=== PATIENT | female | born 1995 | race Caucasian/White ===

== ENCOUNTER → 2016-08-07 | Outpatient (CLI) | payer OTHER ==
[2016-08-07 16:02] LABS: CH 32.1; HCT 33.9 % (34.0-46.0); HGB 11.8 gm/dL (11.4-16.0); MCH 31.1 pg (25.0-35.0); MCHC 34.8 g/dL (31.0-37.0); MCV 89.5 fL (80.0-100.0); Mean Platelet Volume 7.8; RBC 3.78 m/uL (3.80-5.40); RDW 12.4 % (11.5-15.5); WBC 11.6 k/uL (3.8-10.6)
[2016-08-07 16:12] LABS: Glucose 91 mg/dL (74-99); Non-African American GFR(MDRD) >60 (>60 ml/min/1.73 sqM)
[2016-08-07 16:43] LABS: Hepatitis B Surface Ag Index 0.06
[2016-08-08 00:22] LABS: Treponemal Ab Non-Reactive (Non-Reactive)
[2016-08-08 07:43] LABS: HIV-1/HIV-2 Ab Screen NONREAC (NON REAC)
== END | disposition home or self-care (01) ==
LOC: LABWHC1 15:39
PROVIDERS: ATTEND Obstetrics & Gynecology
DX: O26.811 Pregnancy related exhaustion and fatigue, first trimester (principal); Z3A.00 Weeks of gestation of pregnancy not specified
CPT/HCPCS: 36415; 82565; 82947; 85027; 86694; 86695; 86696; 86762; 86777; 86778; 86780; 86850; 86900; 86901; 87340; 87389

== ENCOUNTER → 2016-09-29 | Outpatient (CLI) | payer OTHER ==
--- NOTE | 2016-09-30 09:49 | US ---
EXAMINATION TYPE: US OB anatomy transabd DATE OF EXAM: 09/29/2016 9:35 AM COMPARISON: NONE HISTORY: 036.62XO 2nd tri large for dates TECHNIQUE: EXAM MEASUREMENTS: GESTATIONAL AGE / DATING Physician Established: (19 weeks/4 days) EDC: 02/19/2017 Dates by LMP: Unknown Dates by First Scan: Not available Dates by Current Scan for: (19 weeks/3 days) EDC: 02/20/17 SURVEY IUP: Single PLACENTA: Anterior PREVIA: No previa REINIER: 12.20 cm CERVICAL LENGTH (transabdominal: norm > 3.0cm): 4.8 cm BIOMETRY PRESENTATION: Vertex LIE: Transverse with head maternal Left BPD: 4.5 cm 19 weeks / 5 days HC: 16.4 cm 19 weeks / 1 days AC: 13.9 cm 19 weeks / 3 days FL: 3.0 cm 19 weeks / 2 days ESTIMATED WEIGHT IN GRAMS: 284 grams ESTIMATED WEIGHT IN LBS/OZS: 0 lbs. 10 oz. WEIGHT PERCENTAGE BASED ON ESTABLISHED DATE: 30 % HC/AC: 1.2 FL/AC: 22. HEART RATE: 144 bpm RHYTHM: Normal ANATOMY SEEN (within normal limits): * Lateral Vent (< 1 cm) 0.8 cm * Cisterna Magna (< 1.1 cm) 0.3 cm * Nuchal Fold (< 0.6 cm) 0.4 cm * Cerebellum (varies with age) 1.6 cm Choroid Plexus (bilateral) Midline Falx Cavus Septi Pellucidi Four Chamber Heart Outflow tracts: LVOT/RVOT Stomach Situs Nose / Lips Diaphragm Kidneys (bilateral) - prominent renal pelvis 3 mm Bladder Cord Insert Three Vessel Cord Longitudinal Spine Transverse Spine Arms (bilateral) Legs (bilateral) TECHNOLOGIST IMPRESSION: Difficult to obtain head structures due to position. IMPRESSION: 1. Single intrauterine gestation estimated at 19 weeks 3 days gestation. This would've a calculated E DC of 02/20/2017 based on current measurements.Correlate this with her physician established EDC. 2. Cardiac activity measuring 144 bpm was observed during the study.
== END | disposition home or self-care (01) ==
LOC: RADUSWWP 08:19
PROVIDERS: ATTEND Obstetrics & Gynecology
DX: O36.62X0 Maternal care for excessive fetal growth, second trimester, not applicable or unspecified (principal); Z3A.19 19 weeks gestation of pregnancy
CPT/HCPCS: 76811

== ENCOUNTER 2016-11-13 15:40 | Outpatient (CLI) | payer OTHER ==
[2016-11-13 16:00] VITALS: BP 117/73; PULSE 88; RESP 16; TEMP 97.2
--- NOTE | 2016-11-13 20:09 | P.MSEPDOC ---
Presenting Problems - Arrival Data Date of Arrival on Unit: 11/13/16 Time of Arrival on Unit: 15:45 Mode of Transport: Ambulatory - Complaint OB-Reason for Admission/Chief Complaint: Decreased Movement Comment: x 1.5 days Medical History - Information : 3 Para: 0 Term: 0 : 0 Abortions: Spontaneous or Elective: 2 Number of Living Children: 0 - Gestational Age Expected Date of Delivery: 02/22/17 Gestational Age by RASHMI (wks/days): 25 Weeks and 4 Days - History Sexually Transmitted Diseases: HSV Comment: last outbreak 1 month ago, treating as indicated Review of Systems - Review of Systems Constitutional: No problems Breast: No problems ENT: No problems Cardiovascular: No problems Respiratory: No problems Gastrointestinal: No problems Genitourinary: No problems Musculoskeletal: No problems Neurological: No problems Skin: No problems Vital Signs - Temperature Temperature: 97.2 F Temperature Source: Temporal Artery Scan - Pulse Right Sitting Brachial Pulse Rate: 88 Pulse Assessment Method: Automatic Cuff - Respirations Respiratory Rate: 16 Oxygen Delivery Method: Room Air O2 Sat by Pulse Oximetry: 100 - Blood Pressure Right Arm Sitting Blood Pressure: 117/73 Blood Pressure Mean: 87 Blood Pressure Source: Automatic Cuff Medical Screen Scoring (Pre) - Cervical Exam Dilation: Exam Deferred Effacement: Exam Deferred - Uterine Contractions Frequency: N/A Duration: N/A Intensity: N/A - Maternal Vital Signs Maternal Temperature: N/A Maternal Blood Pressure: N/A Signs of Preeclampsia: N/A Maternal Respirations: N/A - Maternal Trauma Maternal Trauma: N/A - Assessment Baseline FHR: 145 Heart Rate - NICHD Category: Category I (Normal) = 0 - Total Score Total Score (Pre): 0 - Level of Risk Level of Risk: Low (0-5) Physician Notification (Post) - Physician Notified Physician Notified Date: 11/13/16 Physician Notified Time: 16:10 Physician/Practitioner Notified:: Dr Rosa Spoke With: Dr Rosa New Order Received: Yes Disposition - Disposition OB Disposition: Discharge to home, Written follow up instructions reviewed Discharge Date: 11/13/16 Discharge Time: 16:15 I agree with the RN Medical Screening Exam: Yes Risk & Benefit of care provided described in d/c instruction: Yes Diagnosis: DECREASED MOVEMENTS, SECOND TRIMESTER, FETUS 1
== END 2016-11-13 16:17 | disposition home or self-care (01) ==
LOC: FBPOP 15:40
PROVIDERS: ATTEND Obstetrics & Gynecology
DX: O36.8120 Decreased fetal movements, second trimester, not applicable or unspecified (principal); Z3A.25 25 weeks gestation of pregnancy
CPT/HCPCS: 99213

== ENCOUNTER → 2016-11-13 | Outpatient (CLI) | payer OTHER ==
[2016-11-13 21:01] LABS: CH 33.3; HCT 31.6 % (34.0-46.0); HDW 2.83; HGB 10.7 gm/dL (11.4-16.0); MCH 33.4 pg (25.0-35.0); MCHC 33.8 g/dL (31.0-37.0); MCV 98.7 fL (80.0-100.0); Mean Platelet Volume 8.2; WBC 11.4 k/uL (3.8-10.6)
== END | disposition home or self-care (01) ==
LOC: LABWHC1 14:35
PROVIDERS: ATTEND Obstetrics & Gynecology
DX: Z34.92 Encounter for supervision of normal pregnancy, unspecified, second trimester (principal); Z3A.00 Weeks of gestation of pregnancy not specified
CPT/HCPCS: 36415; 85027

== ENCOUNTER 2017-01-22 08:55 | Emergency (ER) | payer OTHER ==
[2017-01-22 09:00] VITALS: BP 123/84; PULSE 100; RESP 20; TEMP 98
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
== END 2017-01-22 09:19 | disposition home or self-care (01) ==
LOC: EC 08:55
DX: O9A.213 Injury, poisoning and certain other consequences of external causes complicating pregnancy, third trimester (principal); S46.912A Strain of unspecified muscle, fascia and tendon at shoulder and upper arm level, left arm, initial encounter; O99.89 Other specified diseases and conditions complicating pregnancy, childbirth and the puerperium; R10.2 Pelvic and perineal pain; Z3A.36 36 weeks gestation of pregnancy; Z79.899 Other long term (current) drug therapy; V43.54XA Car driver injured in collision with van in traffic accident, initial encounter; Y92.410 Unspecified street and highway as the place of occurrence of the external cause
CPT/HCPCS: 99283

== ENCOUNTER 2017-01-22 09:30 | Observation (INO) | payer OTHER ==
[2017-01-22 10:37] VITALS: BMI 34.3
[2017-01-22] MEDS ORDERED: Acetaminophen-Codeine 300-30mg TAB PO PRN ×2 (10:42)
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
[2017-01-23 08:04] VITALS: BP 120/79; PULSE 104; RESP 16; TEMP 98
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
== END 2017-01-23 13:00 | disposition home or self-care (01) ==
LOC: FBPOP 09:30 → 4FBP 10:11
PROVIDERS: ADMIT Obstetrics & Gynecology; ATTEND Obstetrics & Gynecology
DX: Z04.1 Encounter for examination and observation following transport accident (principal); O26.93 Pregnancy related conditions, unspecified, third trimester; S40.012A Contusion of left shoulder, initial encounter; M25.512 Pain in left shoulder; Z3A.35 35 weeks gestation of pregnancy; Z87.891 Personal history of nicotine dependence; Z86.14 Personal history of Methicillin resistant Staphylococcus aureus infection; Z79.899 Other long term (current) drug therapy; V43.52XA Car driver injured in collision with other type car in traffic accident, initial encounter; Z81.8 Family history of other mental and behavioral disorders; Z82.49 Family history of ischemic heart disease and other diseases of the circulatory system
CPT/HCPCS: 59025; G0378 ×2; G0463; 99213

== ENCOUNTER 2017-02-17 12:49 | Outpatient (CLI) | payer OTHER ==
[2017-02-17 13:16] VITALS: BP 122/70; PULSE 90; RESP 16; TEMP 98
--- NOTE | 2017-02-18 07:23 | P.MSEPDOC ---
Presenting Problems - Arrival Data Date of Arrival on Unit: 02/17/17 Time of Arrival on Unit: 13:00 Mode of Transport: Ambulatory - Complaint OB-Reason for Admission/Chief Complaint: Rule Out SROM Medical History - Information : 3 Para: 0 Term: 0 : 0 Abortions: Spontaneous or Elective: 2 Number of Living Children: 0 - Gestational Age Expected Date of Delivery: 02/19/17 Gestational Age by RASHMI (wks/days): 39 Weeks and 6 Days - History Sexually Transmitted Diseases: HSV Review of Systems - Review of Systems Constitutional: No problems Breast: No problems ENT: No problems Cardiovascular: No problems Respiratory: No problems Gastrointestinal: No problems Genitourinary: No problems Musculoskeletal: No problems Neurological: No problems Skin: No problems Vital Signs - Temperature Temperature: 98.0 F Temperature Source: Oral - Pulse Right Sitting Brachial Pulse Rate: 90 Pulse Assessment Method: Automatic Cuff - Respirations Respiratory Rate: 16 Oxygen Delivery Method: Room Air O2 Sat by Pulse Oximetry: 97 - Blood Pressure Right Arm Sitting Blood Pressure: 122/70 Blood Pressure Mean: 87 Blood Pressure Source: Automatic Cuff Medical Screen Scoring (Pre) - Cervical Exam Dilation: 0 cm = 0 Membranes: Intact - Uterine Contractions Frequency: N/A Duration: N/A Intensity: N/A - Maternal Vital Signs Maternal Temperature: N/A Maternal Blood Pressure: N/A Signs of Preeclampsia: N/A Maternal Respirations: N/A - Maternal Trauma Maternal Trauma: N/A - Assessment Baseline FHR: 130 Heart Rate - NICHD Category: Category I (Normal) = 0 NST: Reactive Position: N/A Station: N/A - Total Score Total Score (Pre): 0 Medical Screen Scoring (Post) - Cervical Exam Dilation: 0 cm = 0 Membranes: Intact - Uterine Contractions Frequency: > 5 minutes apart = 1 Duration: N/A Intensity: N/A - Maternal Vital Signs Maternal Temperature: N/A Maternal Blood Pressure: N/A Signs of Preeclampsia: N/A Maternal Respirations: N/A - Maternal Trauma Maternal Trauma: N/A - Assessment Heart Rate: 130 Heart Rate - NICHD Category: Category I (Normal) = 0 NST: Reactive - Total Score Total Score (Post): 1 - Post Treatment Level of Risk Post Treatment Level of Risk: Low (0-5) Physician Notification (Post) - Physician Notified Physician Notified Date: 02/17/17 Physician Notified Time: 13:30 Physician/Practitioner Notified:: Dr Anderson Spoke With: Dr Anderson New Order Received: Yes - Notification Comment Comment: Discharge home. Follow up with Dr Anderson as scheduled. Disposition - Disposition OB Disposition: Discharge to home Discharge Date: 02/17/17 Discharge Time: 13:30 I agree with the RN Medical Screening Exam: Yes Risk & Benefit of care provided described in d/c instruction: Yes Diagnosis: FALSE LABOR AT OR AFTER 37 COMPLETED WEEKS OF GESTATION
== END 2017-02-17 13:30 | disposition home or self-care (01) ==
LOC: FBPOP 12:49
PROVIDERS: ATTEND Obstetrics & Gynecology
DX: O47.1 False labor at or after 37 completed weeks of gestation (principal); Z3A.39 39 weeks gestation of pregnancy
CPT/HCPCS: 59025; 84112; G0463; 99213

== ENCOUNTER 2017-02-24 16:43 | Outpatient (CLI) | payer OTHER ==
[2017-02-24] MEDS ORDERED: DINOPROSTONE 10 MG INSERT.ER VAGINAL ONE (16:49)
[2017-02-24 17:37] VITALS: BP 122/78; PULSE 86; RESP 20; TEMP 97.4
== END 2017-02-24 17:45 | disposition home or self-care (01) ==
LOC: FBPOP 16:43 → EDSTATUS 17:00 → UNDODISIN 17:45 → FBPOP 17:45
PROVIDERS: ATTEND Obstetrics & Gynecology
DX: O48.0 Post-term pregnancy (principal); Z3A.41 41 weeks gestation of pregnancy
CPT/HCPCS: 59025; G0463; 99213

== ENCOUNTER 2017-02-25 06:54 | Inpatient (IN) | payer OTHER ==
[2017-02-25] MEDS ORDERED: TERBUTALINE 1 MG/ML VIAL SQ PRN (07:05)
[2017-02-25] MEDS ORDERED: LIDOCAINE 1% (PF) 10 MG/ML (30 ML SDV) SQ PRN (07:05)
[2017-02-25] MEDS ORDERED: OXYTOCIN 10 UNIT/ML 1 ML VIAL IM PRN (07:05)
[2017-02-25] MEDS ORDERED: METHYLERGONOVINE 0.2 MG/ML 1 ML AMP IM PRN (07:05)
[2017-02-25] MEDS ORDERED: CARBOPROST TROMETHAMINE 250 MCG/ML 1 ML AMP IM PRN (07:05)
[2017-02-25] MEDS ORDERED: OXYTOCIN 20 UNITS/1000 ML NS 1,000 ML IV SCH (07:15)
[2017-02-25] MEDS: LACTATED RINGERS 1,000 ML IV SCH ×3 (07:19→22:29)
[2017-02-25 07:25] LABS: Basophils % (A) 0 %; CH 30.5; Eosinophils # (A) 0.1 k/uL (0-0.7); Eosinophils % (A) 1 %; HCT 32.6 % (34.0-46.0); HGB 11.1 gm/dL (11.4-16.0); Luc # (Auto) 0.32; Luc % (Auto) 3; Lymphocytes # (A) 1.9 k/uL (1.0-4.8); Lymphocytes % (A) 16 %; MCH 30.7 pg (25.0-35.0); MCHC 34.1 g/dL (31.0-37.0); Mean Platelet Volume 8.2; Monocytes # (A) 0.8 k/uL (0-1.0); Monocytes % (A) 7 %; Neutrophils % (A) 74 %; RBC 3.62 m/uL (3.80-5.40); RDW 14.1 % (11.5-15.5); WBC 12.3 k/uL (3.8-10.6); WBC (Perox) 11.96
[2017-02-25 07:31] VITALS: RESP 16; BMI 68.1
[2017-02-25] MEDS: BUTORPHANOL 1 MG/ML 1 ML VIAL IV PRN ×2 (20:22→22:18)
[2017-02-25] MEDS ORDERED: CITRIC ACID-SODIUM CITRATE 15 ML CUP PO ONE (23:06)
[2017-02-25] MEDS ORDERED: ceFAZolin 2 GM in SODIUM CHLORIDE 0.9% 100 ML IVPB ONE (23:06)
[2017-02-25] MEDS ORDERED: ONDANSETRON 4 MG/2 ML VIAL ONE (23:20)
[2017-02-25] MEDS ORDERED: MORPHINE SULFATE (PF) 0.3 MG/0.3 ML SYR ONE (23:20)
[2017-02-25] MEDS ORDERED: OXYTOCIN 10 UNIT/ML 1 ML VIAL ONE (23:20)
[2017-02-25] MEDS ORDERED: KETOROLAC 30 MG/ML 1 ML VIAL ONE (23:20)
[2017-02-25] MEDS ORDERED: NALBUPHINE 10 MG/ML AMPUL ONE (23:20)
[2017-02-25] MEDS ORDERED: NALOXONE 0.4 MG/ML 1 ML VIAL IV PRN (23:44)
[2017-02-25] MEDS ORDERED: ONDANSETRON 4 MG/2 ML VIAL IVP PRN (23:44)
[2017-02-26] MEDS ORDERED: diphenhydrAMINE 50 MG CAP PO PRN (00:04)
[2017-02-26] MEDS ORDERED: NALOXONE 0.4 MG/ML 1 ML VIAL IV PRN (00:04)
[2017-02-26] MEDS ORDERED: ACETAMINOPHEN TAB 325 MG TAB PO PRN (00:04)
[2017-02-26] MEDS ORDERED: ZOLPIDEM 5 MG TAB PO PRN (00:04)
[2017-02-26] MEDS ORDERED: diphenhydrAMINE 50 MG/ML 1 ML VIAL IVP PRN ×2 (00:04)
[2017-02-26] MEDS ORDERED: ONDANSETRON 4 MG/2 ML VIAL IVP PRN (00:04)
[2017-02-26] MEDS ORDERED: Acetaminophen-Codeine 300-30mg TAB PO PRN (00:04)
[2017-02-26] MEDS ORDERED: diphenhydrAMINE 25 MG CAP PO PRN (00:04)
[2017-02-26] MEDS ORDERED: METOCLOPRAMIDE 5 MG/ML 2 ML VIAL IVP PRN (00:04)
[2017-02-26] MEDS ORDERED: SIMETHICONE 80 MG CHEWABLE PO PRN (00:04)
--- NOTE | 2017-02-26 00:07 | P.HPOB ---
History of Present Illness H&P Date: 02/26/17 Chief Complaint: Intrauterine at term: Induction of labor Denita is a 21-year-old at 40 weeks 6 days gestation arise for induction of labor. Her course has been significant for history of HSV but has had no outbreaks recently. She has no signs or symptoms of HSV at this time and no prodromal symptoms. On exam there is no lesions on her perineum. Otherwise her Precis course was unremarkable. heart tones are in the 140s and reactive. She was dilated to 160% effaced -2 station artificial rupture membranes was performed and clear fluid is noted. On physical exam vital signs are stable and afebrile. Heart regular, lungs clear, extremities without pain. Osteopathic exam is unremarkable. Abdomen is soft positive bowel sounds are noted and gravid uterus is noted. Assessment intrauterine at term. Plan expect spontaneous vaginal delivery. Past Medical History Past Medical History: No Reported History History of Any Multi-Drug Resistant Organisms: None Reported, MRSA Date of last positivie culture/infection: 2006 MDRO Source:: patient Past Surgical History: No Surgical Hx Reported Additional Past Surgical History / Comment(s): D&C Past Anesthesia/Blood Transfusion Reactions: No Reported Reaction Past Psychological History: No Psychological Hx Reported Smoking Status: Never smoker Past Alcohol Use History: None Reported Past Drug Use History: None Reported - Past Family History Mother Family Medical History: Hyperlipidemia, Hypertension Additional Family Medical History / Comment(s): polycystic ovarian syndrome, scholeosis, joint issues Father Additional Family Medical History / Comment(s): appendicitis, depression Medications and Allergies Home Medications Medication Instructions Recorded Confirmed Type Pnv,Calcium 72/Iron/Folic Acid 1 tab PO DAILY 03/04/16 02/25/17 History [ Plus Tablet] Acyclovir 400 mg PO BID 01/22/17 02/25/17 History Allergies Allergy/AdvReac Type Severity Reaction Status Date / Time No Known Allergies Allergy Verified 02/25/17 07:04 Exam Osteopathic Statement: *. No significant issues noted on an osteopathic structural exam other than those noted in the History and Physical/Consult. - Vital Signs Vital signs: Vital Signs Temp Pulse Resp BP Pulse Ox 02/25/17 07:23 97.2 F L 109 H 16 127/75 98 Intake and Output 02/25/17 02/25/17 02/26/17 14:59 22:59 06:59 Other: Weight 180 kg Patient Weight 02/26/17 06:59 Weight 180 kg Results Result Diagrams: 02/25/17 07:17 Abnormal Lab Results - Last 24 Hours (Table) 02/25/17 Range/Units 07:17 WBC 12.3 H (3.8-10.6) k/uL RBC 3.62 L (3.80-5.40) m/uL Hgb 11.1 L (11.4-16.0) gm/dL Hct 32.6 L (34.0-46.0) % Neutrophils # 9.0 H (1.3-7.7) k/uL
--- NOTE | 2017-02-26 00:10 | P.OP ---
Date of Procedure: 02/26/17 Preoperative Diagnosis: Intrauterine term: Arrest of dilatation Postoperative Diagnosis: Same with cephalopelvic disproportion Procedure(s) Performed: Primary low transverse section Implants: Anesthesia: spinal Surgeon: Angel Anderson Non Destructive Testing Scientist #1: Rosa Moncada Estimated Blood Loss (ml): 600 IV fluids (ml): 600 Urine output (ml): 100 Pathology: other (Placenta) Condition: stable Disposition: floor Indications for Procedure: Operative Findings: Female was 8 and 9 at one and 5 minutes respectively weight was 7 lbs. 9 oz. Description of Procedure: Patient was taken to the operating suite where a spinal anesthetic was found be adequate. She was prepped and draped in the normal sterile fashion and placed in dorsal supine position with leftward tilt. Initially a Pfannenstiel skin incision was made and this incision was then carried through to underlying layer of the fascia was second knife. Fascia was then nicked in the midline and this opening was extended laterally with Umanzor scissors. Superior and inferior aspect of this incision were then grasped tented up and bluntly and sharply dissected off the rectus muscles. Rectus muscles were then divided the midline and blunt dissection through the peritoneum was made. This opening was then extended superiorly and inferiorly with good visualization of both bowel bladder. Bladder blade was then placed and the bladder flap was entered with Metzenbaum scissors and digitally created. Knife was then used to incise uterus this opening was then fully crit with a hemostat and bluntly extended. Head was then atraumatically delivered and mouth nares were bulb suctioned. Anterior and posterior shoulders were delivered gentle downward upper traction followed by the remainder the baby. Umbilical cord was then clamped cut usual fashion an nursery personnel was present to assume care. Placenta was then delivered intact and Pitocin was added to the IV. Uterus was then exteriorized cleared of clots and debris and closed in 2 layers with 0 Vicryl suture. Once excellent hemostasis was obtained 0 Vicryl suture was used to close the peritoneum. Fascial layer was then closed with 0 Vicryl suture one layer of 3- 0 Vicryl was placed in the deep subcuticular tissues to reapproximate the skin the skin was then closed with 3-0 Vicryl on a Yusuf needle. Sponge, lap, needle counts were all correct 2. Patient was then taken to the recovery room in stable and satisfactory condition.
[2017-02-26] MEDS: LACTATED RINGERS 1,000 ML IV SCH ×3 (04:00→17:39)
[2017-02-26] MEDS: KETOROLAC 30 MG/ML 1 ML VIAL IVP PRN ×3 (07:44→21:07)
[2017-02-26] MEDS: SENNOSIDES-DOCUSATE SODIUM 1 EACH TAB PO SCH ×2 (08:27→14:10)
--- NOTE | 2017-02-26 12:18 | P.PNOBGPC ---
Subjective - Subjective Principal diagnosis: Postop day 1 Interval history: Overall Denita is doing very well postop day 1. She is ambulating and she is tolerating her diet as far. She is not voided yet but feels like she has to and we'll try again soon. We'll plan to continue current care for now with expectation for discharge in the next 1-2 days. Vital signs are otherwise stable and afebrile. Heart regular, lungs clear, extremities without pain. Abdomen soft and nontender positive bowel sounds are noted her incision is clean dry and intact. Assessment postop day 1. Plan continue current care. Patient reports: Reports appetite normal, Reports voiding normally, Reports pain well controlled, Reports ambulating normally : doing well Objective - Vital Signs Latest vital signs: Vital Signs Temp Pulse Resp BP Pulse Ox 02/26/17 08:00 98.3 F 87 16 118/71 96 02/26/17 04:44 96 02/26/17 04:00 98.9 F 98 16 132/74 96 02/26/17 02:44 16 97 02/26/17 02:09 98.5 F 96 16 120/71 96 02/26/17 01:39 100 16 121/74 96 02/26/17 01:09 93 16 123/74 02/26/17 00:54 98 16 123/64 96 02/26/17 00:39 103 H 16 127/61 97 02/26/17 00:28 16 97 02/26/17 00:24 100 16 122/58 02/26/17 00:09 97.1 F L 104 H 16 92/50 Intake and Output 02/25/17 02/26/17 02/26/17 22:59 06:59 14:59 Intake Total 1000 900 Output Total 600 650 Balance 1000 300 -650 Intake: Intake, IV Titration 1000 900 Amount Lactated Ringers 1,000 ml 1000 @ 125 mls/hr IV .Q8H JORDI Rx#:[id number] Oxytocin 20 Units/1000 ml 900 Ns 1,000 ml @ 1 MILLIUNIT/MIN 3 mls/hr IV .Q24H JORDI Rx#:[id number] Output: Urine 650 Estimated Blood Loss 600
[2017-02-26] MEDS: Acetaminophen-Codeine 300-30mg TAB PO PRN (19:48)
[2017-02-27 05:36] LABS: Basophils # (A) 0.1 k/uL (0-0.2); Basophils % (A) 0 %; CH 30.6; CHCM 33.4; Eosinophils # (A) 0.1 k/uL (0-0.7); Eosinophils % (A) 1 %; HCT 29.8 % (34.0-46.0); HDW 2.78; Luc # (Auto) 0.28; Luc % (Auto) 2; Lymphocytes # (A) 1.9 k/uL (1.0-4.8); Lymphocytes % (A) 15 %; MCH 29.8 pg (25.0-35.0); MCHC 32.3 g/dL (31.0-37.0); MCV 92.2 fL (80.0-100.0); Mean Platelet Volume 9.3; Monocytes # (A) 1.1 k/uL (0-1.0); Monocytes % (A) 9 %; Neutrophils # (A) 9.1 k/uL (1.3-7.7); Neutrophils % (A) 73 %; RBC 3.24 m/uL (3.80-5.40); RDW 14.6 % (11.5-15.5); WBC 12.6 k/uL (3.8-10.6); WBC (Perox) 13.24
[2017-02-27 05:40] LABS: HGB 9.6 gm/dL (11.4-16.0)
[2017-02-27] MEDS: Acetaminophen-Codeine 300-30mg TAB PO PRN ×4 (06:31→23:55)
--- NOTE | 2017-02-27 06:43 | P.PNOBGPC ---
Subjective - Subjective Principal diagnosis: Status post section postoperative day #2 Interval history: Patient is sore this morning but may have got behind on her pain medication. She has been ambulating and passing flatus but no bowel movement yet. She is working on breast-feeding. Lochia is decreasing. Patient reports: Reports appetite normal, Reports voiding normally, Reports pain poorly controlled, Reports ambulating normally [place]: doing well, nursing well Objective - Vital Signs Latest vital signs: Vital Signs Temp Pulse Resp BP Pulse Ox 02/27/17 00:00 98.5 F 81 16 98/78 97 02/26/17 20:00 98.7 F 92 16 117/66 98 02/26/17 16:00 98.2 F 102 H 16 120/61 97 02/26/17 12:00 98.3 F 88 16 115/76 98 02/26/17 08:00 98.3 F 87 16 118/71 96 Intake and Output 02/26/17 02/26/17 02/27/17 14:59 22:59 06:59 Output Total 650 1450 Balance -650 -1450 Output: Urine 650 1450 Other: # Voids 0 1 - Exam Extremities: Present: normal. Absent: tenderness, edema Abdomen: Present: normal appearance, soft (Positive bowel sounds 4), tenderness (Mild). Absent: distention Incision: Present: normal, dry, intact. Absent: erythematous - Labs Labs: Abnormal Lab Results - Last 24 Hours (Table) 02/27/17 Range/Units 05:21 WBC 12.6 H (3.8-10.6) k/uL RBC 3.24 L (3.80-5.40) m/uL Hgb 9.6 L D (11.4-16.0) gm/dL Hct 29.8 L (34.0-46.0) % Neutrophils # 9.1 H (1.3-7.7) k/uL Monocytes # 1.1 H (0-1.0) k/uL Assessment and Plan (1) delivery delivered Narrative/Plan: Impression is status post delivery postoperative day #2. Plan is to keep up with pain medication today. Will continue ambulating. Will continue care. Current Visit: Yes Status: Acute Code(s): O82 - ENCOUNTER FOR DELIVERY WITHOUT INDICATION SNOMED Code(s): 535200814
[2017-02-27] MEDS: SENNOSIDES-DOCUSATE SODIUM 1 EACH TAB PO SCH ×2 (07:33→20:50)
[2017-02-27] MEDS: IBUPROFEN 600 MG TAB PO PRN ×3 (08:55→20:51)
--- NOTE | 2017-02-27 12:15 | P.PN ---
Progress Note - Text Date:02/27 Time:1214 Patient is status post . Patient seen this morning with VAS score of 4.no c/o of pruritus, no c/o nausea/vomiting, comfortable and doing well.
[2017-02-28] MEDS: IBUPROFEN 600 MG TAB PO PRN ×2 (03:03→10:45)
[2017-02-28] MEDS: Acetaminophen-Codeine 300-30mg TAB PO PRN (08:03)
[2017-02-28] MEDS: SENNOSIDES-DOCUSATE SODIUM 1 EACH TAB PO SCH (08:04)
[2017-02-28 08:38] VITALS: BP 124/74; PULSE 91; TEMP 99.2
--- NOTE | 2017-02-28 10:43 | P.DS ---
Providers Date of admission: 02/25/17 06:54 Expected date of discharge: 02/28/17 Attending physician: Angel Anderson Primary care physician: Stated None - Discharge Diagnosis(es) (1) delivery delivered Current Visit: Yes Status: Acute Hospital Course: This is a 21-year-old female 3 para 0 at 40-6/7 weeks who presented for induction of labor. She underwent a primary low transverse section for failure to progress on 02/25/2017 and delivered a viable female infant with scores of 8 at 1 minute and 9 at 5 minutes and infant weight of 7 lbs. 9 oz. Her postoperative course has been essentially uncomplicated. She is currently postoperative day #3 and is passing flatus and bowel movement. Her pain is fairly well controlled with ibuprofen and Tylenol 3. She is having some difficulty with breast-feeding and has switched to bottle feeding. Vital signs are stable. Abdomen is soft with fundus firm and nontender. Incision is clean dry and intact. Extremities show negative Homans. Impression is status post primary low transverse section postoperative day #3. Plan is to discharge home today. Routine postoperative and instructions are given. She is advised to follow up with Dr. Anderson in approximately 7-10 days. She is advised to call the office if she has any further questions or concerns prior to her appointment time. She will be given prescriptions for ibuprofen and Tylenol 3. She has a breast pump at home. Procedures: Oxytocin induction of labor Primary low transverse section on 02/25/2017 Patient Condition at Discharge: Stable Plan - Discharge Summary New Discharge Prescriptions: New Acetaminophen-Codeine 300-30mg [Tylenol #3] 1 tab PO Q4H PRN #30 tablet PRN Reason: Pain Ibuprofen [Motrin] 600 mg PO Q6HR PRN #30 tab PRN Reason: Pain No Action Pnv,Calcium 72/Iron/Folic Acid [ Plus Tablet] 1 tab PO DAILY Acyclovir 400 mg PO BID Discharge Medication List Pnv,Calcium 72/Iron/Folic Acid [ Plus Tablet] 1 tab PO DAILY 03/04/16 [ History] Acyclovir 400 mg PO BID 01/22/17 [History] Acetaminophen-Codeine 300-30mg [Tylenol #3] 1 tab PO Q4H PRN #30 tablet [Rx] Ibuprofen [Motrin] 600 mg PO Q6HR PRN #30 tab 02/26/17 [Rx] Follow up Appointment(s)/Referral(s): Angel Anderson DO [Doctor of Osteopathic Medicine] - 1 Week Activity/Diet/Wound Care/Special Instructions: No heavy lifting, limit stairs and driving, and pelvic rest. If any high temperatures, heavy bleeding, or severe pain call my office Discharge Disposition: HOME SELF-CARE
== END 2017-02-28 11:45 | disposition home or self-care (01) | DRG 765 ==
LOC: 4FBP 06:54
PROVIDERS: ADMIT Obstetrics & Gynecology; ATTEND Obstetrics & Gynecology
PROC: 3E033VJ Introduction of Other Hormone into Peripheral Vein, Percutaneous Approach (ICD-10-PCS; 2017-02-25)
PROC: 10907ZC Drainage of Amniotic Fluid, Therapeutic from Products of Conception, Via Natural or Artificial Opening (ICD-10-PCS; 2017-02-25)
PROC: 10D00Z1 Extraction of Products of Conception, Low, Open Approach (ICD-10-PCS; principal; 2017-02-26)
DX: O33.9 Maternal care for disproportion, unspecified (principal); O98.311 Other infections with a predominantly sexual mode of transmission complicating pregnancy, first trimester; A60.04 Herpesviral vulvovaginitis; O62.2 Other uterine inertia; Z37.0 Single live birth; Z3A.40 40 weeks gestation of pregnancy; Z79.899 Other long term (current) drug therapy
CPT/HCPCS: 85025; 86850; 86900; 86901; 88307

== ENCOUNTER → 2017-04-19 | Outpatient (CLI) | payer OTHER | END | disposition home or self-care (01) | LOC: LABWHC1 17:10 | PROVIDERS: ATTEND Obstetrics & Gynecology | DX: Z34.90 Encounter for supervision of normal pregnancy, unspecified, unspecified trimester (principal); Z3A.00 Weeks of gestation of pregnancy not specified | CPT/HCPCS: 36415; 84702 ==

== ENCOUNTER 2017-08-06 19:54 | Emergency (ER) | payer OTHER ==
[2017-08-06 20:10] VITALS: BP 138/86; PULSE 86; RESP 18; TEMP 98.8
--- NOTE | 2017-08-06 20:48 | XR ---
Left hand HISTORY: Trauma and pain 3 views of the left hand No comparisons There is an ossific density present medial to the proximal interphalangeal joint of the third digit o f the left hand compatible with probable displaced chip fracture, there is no dislocation. There is s oft tissue swelling. IMPRESSION: Fracture at the third digit as described.
--- NOTE | 2017-08-06 21:10 | ED ---
Upper Extremity HPI - General Chief Complaint: Extremity Injury, Upper Stated Complaint: Finger Injury Time Seen by Provider: 08/06/17 20:16 Source: patient Mode of arrival: ambulatory Limitations: no limitations - History of Present Illness Initial Comments: This is a 21 year old female with CC of left 3rd finger pain after slamming finger into car door. Patient reports she has pain with ROM of finger. Denies lacerations. 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 denies any peripheral paresthesias.Patient denies any recent fever, chills, shortness of breath, chest pain, back pain, abdominal pain, nausea vomiting, numbness or tingling, dysuria or hematuria, constipation or diarrhea, headaches or visual changes, or any other current symptoms - Related Data Home Medications Medication Instructions Recorded Confirmed No Known Home Medications [No 08/06/17 08/06/17 Known Home Medications] Allergies Allergy/AdvReac Type Severity Reaction Status Date / Time No Known Allergies Allergy Verified 08/06/17 20:11 Review of Systems ROS Statement: Those systems with pertinent positive or pertinent negative responses have been documented in the HPI. ROS Other: All systems not noted in ROS Statement are negative. Past Medical History Past Medical History: No Reported History History of Any Multi-Drug Resistant Organisms: None Reported, MRSA Date of last positivie culture/infection: 2006 MDRO Source:: patient Past Surgical History: Section Additional Past Surgical History / Comment(s): D&C Past Anesthesia/Blood Transfusion Reactions: No Reported Reaction Past Psychological History: No Psychological Hx Reported Smoking Status: Never smoker Past Alcohol Use History: None Reported Past Drug Use History: None Reported - Past Family History Mother Family Medical History: Hyperlipidemia, Hypertension Additional Family Medical History / Comment(s): polycystic ovarian syndrome, scholeosis, joint issues Father Additional Family Medical History / Comment(s): appendicitis, depression General Exam - General Exam Comments Initial Comments: this is a well-appearing 21-year-old female. No distress. Limitations: no limitations General appearance: alert, in no apparent distress Head exam: Present: atraumatic, normocephalic, normal inspection Eye exam: Present: normal appearance, PERRL, EOMI. Absent: scleral icterus, conjunctival injection, periorbital swelling ENT exam: Present: normal exam, mucous membranes moist Neck exam: Present: normal inspection. Absent: tenderness, meningismus, lymphadenopathy Respiratory exam: Present: normal lung sounds bilaterally. Absent: respiratory distress, wheezes, rales, rhonchi, stridor Cardiovascular Exam: Present: regular rate, normal rhythm, normal heart sounds. Absent: systolic murmur, diastolic murmur, rubs, gallop, clicks GI/Abdominal exam: Present: soft, normal bowel sounds. Absent: distended, tenderness, guarding, rebound, rigid Extremities exam: Present: normal inspection, full ROM, normal capillary refill. Absent: tenderness, pedal edema, joint swelling, calf tenderness Left Elbow exam: Present: normal inspection, full ROM Forearm Wrist exam: Present: normal inspection, full ROM Hand Wrist exam: Present: tenderness, swelling (swelling and tenderness over 3rd digit. ). Absent: normal inspection, full ROM (limited ROM due to pain.), abrasion, laceration, ecchymosis, deformity, crepitus Neuro motor exam: Present: wrist extension intact, thumb opposition intact, thumb IP flexion intact, thumb adduction intact, fingers 2-5 abduction intact Vascular: Present: normal capillary refill Back exam: Present: normal inspection Neurological exam: Present: alert, oriented X3, CN II-XII intact Psychiatric exam: Present: normal affect, normal mood Skin exam: Present: warm, dry, intact, normal color. Absent: rash Course Vital Signs 08/06/17 20:02 Temperature 98.8 F Pulse Rate 86 Respiratory 18 Rate Blood Pressure 138/86 O2 Sat by Pulse 98 Oximetry Procedures - Orthopedic Splinting/Casting Injury #1 Side: left Upper Extremity Injury Location: hand Upper Extremity Immobilizer: aluminum form splint, veronica tape Medical Decision Making - Medical Decision Making Patient is a 21-year-old female presents with left third digit pain after hand was slammed in a car door. She reports the pain is mainly over the proximal interphalangeal joint. She does have flexion and extension noted within the finger. No evidence of tendon avulsion at this time.patient is no lacerations. Patientx-ray reveals a fracture.x-ray report reads, "Patient has ossific density medial to proximal interphalangeal joint of the third digit of the left hand compatible with a probable displaced chip fracture. No dislocation. Soft tissue swelling noted." patient was placed in a veronica tape, and finger splint. Discussed following up with orthopedic hand specialist. I see a Motrin Tylenol for pain. - Radiology Data Radiology results: report reviewed Patient has ossific density medial to proximal interphalangeal joint of the third digit of the left hand compatible with a probable displaced chip fracture. No dislocation. Soft tissue swelling noted. Disposition Clinical Impression: Closed fracture of phalanx of digit of hand Disposition: HOME SELF-CARE Condition: Good Instructions: Finger Fracture (ED) Additional Instructions: Patient advised to rest, ice the area. Patient should be wearing this finger splint or veronica taping the fingers. follow-up with orthopedic hand specialist.Return to the emergency department if any alarming signs or symptoms occur. Referrals: Ritika Chang MD [Primary Care Provider] - 1-2 days Miguel Huertas DO [Doctor of Osteopathic Medicine] - 1-2 days Time of Disposition: 21:07
== END 2017-08-06 21:26 | disposition home or self-care (01) ==
LOC: EC 19:54
DX: S62.613A Displaced fracture of proximal phalanx of left middle finger, initial encounter for closed fracture (principal); Z86.14 Personal history of Methicillin resistant Staphylococcus aureus infection; W23.0XXA Caught, crushed, jammed, or pinched between moving objects, initial encounter; Y92.89 Other specified places as the place of occurrence of the external cause
CPT/HCPCS: 99283

== ENCOUNTER → 2019-05-12 | Outpatient (CLI) | payer OTHER ==
[2019-05-12 13:47] LABS: Basophils # (A) 0.1 k/uL (0-0.2); Basophils % (A) 1 %; Eosinophils # (A) 0.1 k/uL (0-0.7); Eosinophils % (A) 1 %; HCT 37.8 % (34.0-46.0); HGB 12.9 gm/dL (11.4-16.0); Lymphocytes # (A) 2.4 k/uL (1.0-4.8); Lymphocytes % (A) 29 %; MCH 31.3 pg (25.0-35.0); MCHC 34.2 g/dL (31.0-37.0); MCV 91.7 fL (80.0-100.0); Mean Platelet Volume 6.5; Monocytes # (A) 0.5 k/uL (0-1.0); Monocytes % (A) 6 %; Neutrophils % (A) 61 %; Platelet Count 302 k/uL (150-450); RBC 4.12 m/uL (3.80-5.40); RDW 12.5 % (11.5-15.5); WBC 8.3 k/uL (3.8-10.6)
[2019-05-12 18:32] LABS: Vitamin D 25 Hydroxy 19.1 ng/mL (30.0-100.0)
[2019-05-12 18:35] LABS: Folate, Serum 15.5 ng/mL
[2019-05-12 18:40] LABS: ALT 20 U/L (8-44); AST 21 U/L (13-35); African American GFR (CKD) 119.6 (60.0-200.0); Albumin/Globulin Ratio 2.13 (1.60-3.17); Alkaline Phosphatase 63 U/L (41-126); BUN/Creat Ratio 11.25 Ratio (12.00-20.00); C Reactive Protein <0.4 mg/dL (0.0-0.8); Calcium 9.7 mg/dL (8.7-10.3); Carbon Dioxide 26.6 mmol/L (21.6-31.8); Chloride 106 mmol/L (96-109); Chol/HDL Ratio 3.32; Cholesterol 186 mg/dL (0-200); Globulin 2.4 g/dL (1.6-3.3); Glucose 96 mg/dL (70-110); LDL Cholesterol,Calculated 118.6 mg/dL (0.0-131.0); Potassium 4.4 mmol/L (3.5-5.5); Sodium 141 mmol/L (135-145); Total Bilirubin 0.5 mg/dL (0.3-1.2); Total Protein 7.5 g/dL (6.2-8.2)
[2019-05-12 20:24] LABS: Hemoglobin A1C 5.1 % (4.0-6.0)
== END | disposition home or self-care (01) ==
LOC: LABWHC1 12:59
PROVIDERS: ATTEND Psychiatry & Neurology Psychiatry
DX: Z51.81 Encounter for therapeutic drug level monitoring (principal)
CPT/HCPCS: 36415; 80053; 80061; 82306; 82746; 83036; 84439; 84443; 84479; 85025; 86140

== ENCOUNTER → 2021-02-10 | Outpatient (CLI) | payer OTHER ==
--- NOTE | 2021-02-10 10:54 | XR ---
EXAMINATION TYPE: XR sinus DATE OF EXAM: 02/10/2021 COMPARISON: None HISTORY: Chronic sinusitis congestion worse to left side TECHNIQUE: 4 view paranasal sinus study FINDINGS: Paranasal sinuses are examined in 4 views. No suspicious air-fluid levels are evident. No s ignificant mucosal thickening is evident. The sella is unremarkable. IMPRESSION: 1. Normal paranasal sinus study
== END | disposition home or self-care (01) ==
LOC: RADXRMAIN 10:20
PROVIDERS: ATTEND Nurse Practitioner Family
DX: J32.9 Chronic sinusitis, unspecified (principal)
CPT/HCPCS: 70220